=== PATIENT | male | born 1945 | race Caucasian/White ===

== ENCOUNTER → 2019-03-25 10:48 | Outpatient (CLI) | payer MEDICARE, OTHER, SELFPAY ==
--- NOTE | 2019-03-25 | DI.MRI.S_ITS ---
PROCEDURE: MR LUMBAR SPINE WO CON INDICATIONS: Low back pain TECHNIQUE: Noncontrast sagittal T1 spin echo and T2 fast echo, sagittal STIR, axial T1 and T2 fast spin echo through the lumbar spine. In cases with scoliosis, additional coronal T2 fast spin echo may be performed. COMPARISON: None. FINDINGS: Image quality: Excellent. Alignment and Curvature: There is normal bony alignment. Bone Marrow: Marrow is of normal overall signal. No acute vertebral body compression fractures. Spinal Cord: Conus medullaris terminates at the L1 level. Visualized cord demonstrates normal signal and size. Paraspinous Soft Tissues: No paravertebral masses. T12-L1: Normal appearance. L1-L2: The disc height is well-preserved. Loss of disc signal is seen at this level. No significant neural foraminal or central canal narrowing can be seen. There is an annular fissure seen posteriorly and on the left, as on series 5 image 11 and on series 4 image 11. L2-L3: The disc height is well-preserved. Loss of disc signal is seen at this level. Mild to moderate disc bulge is seen. Clnv-ts-ucgxzpnl facet hypertrophy is seen. There is rpkf-bh-uyhtgkhy bilateral neural foraminal narrowing seen. Moderate central canal narrowing is seen. L3-L4: The disc height is well-preserved. Loss of disc signal is seen at this level. Moderate generalized disc bulge is seen. Mild facet joint hypertrophy is seen. Cnvp-aq-pukwzijf bilateral neural foraminal narrowing is seen. Moderate central canal narrowing is seen. L4-L5: Mild to moderate loss of disc height and disc signal are seen. Reactive marrow endplate changes are seen, which are hyperintense on T1-weighted and T2-weighted imaging and most consistent with fatty metaplasia (Modic type II changes). Moderate disc bulge is seen, which is eccentric to the right. There is a right lateral recess disc extrusion seen, slight inferior migration of disc material. There is associated moderate central canal narrowing and associated mass effect upon the regional nerve roots, including upon the transiting right L5 nerve root. Moderate to prominent facet hypertrophy is seen at this level. There is moderate right-sided and moderate to severe left-sided neural foraminal narrowing seen. There is a degree of compression seen upon the exiting left L4 nerve root. L5-S1: The disc height is well-preserved. Loss of disc signal is seen at this level. Mild generalized disc bulge is seen. Mild facet joint hypertrophy is seen. No significant neural foraminal or central canal narrowing can be seen. IMPRESSION: Degenerative changes are seen, which are worst at the L4-L5 level, where there is a right-sided disc extrusion with associated central canal narrowing and mass effect. Moderate to severe left-sided neural foraminal narrowing is also seen at L4-L5, with associated exiting left L4 nerve root compression. L1-L2 annular fissure. Dictated by: yK Segura M.D. on 03/25/2019 at 14:10 Approved by: Ky Segura M.D. on 03/25/2019 at 14:15
== END ==
PROVIDERS: PCP Family Medicine; Visit Provider Physician Assistant Surgical
DX: M54.5 Low back pain (principal); M47.816 Spondylosis without myelopathy or radiculopathy, lumbar region; M47.817 Spondylosis without myelopathy or radiculopathy, lumbosacral region; M48.061 Spinal stenosis, lumbar region without neurogenic claudication; M48.07 Spinal stenosis, lumbosacral region
CPT/HCPCS: 72148

== ENCOUNTER 2019-08-02 12:38 | Day surgery (SDC) | payer MEDICARE, OTHER, SELFPAY ==
[2019-07-31 12:09] VITALS: BMI 31.5
[2019-08-02] VITALS (7 sets, daily range): BP systolic 155–168; BP diastolic 89–97; PULSE 76–86; RESP 14–20; TEMP 35.9–37; O2SAT 96–98; BMI 31.5
--- NOTE | 2019-08-02 | DI.RAD.S_ITS ---
PROCEDURE: XR LUMBAR SPINE 2-3V INDICATIONS: L4-5 MICRODISECTOMY TECHNIQUE: 2 views of the lumbar spine were acquired. COMPARISON: [facility] YASMEEN Sousa, XR LUMBAR SPINE 2 OR 3 VIEWS, 02/19/2019, 10:34. FINDINGS: 2 intraoperative images demonstrate radiopaque surgical probe localizing the L4-L5 level for microdiscectomy. IMPRESSION: Localization with surgical probe at the L4-L5 level. Dictated by: James MAGAÑA Interpreted: Lary Pinedo MD on 08/02/2019 at 16:05 Approved by: Lary Pinedo M.D. on 08/02/2019 at 16:34
[2019-08-02] MEDS: LACTATED RINGERS 1,000 ML 42 ML IV (13:15)
--- NOTE | 2019-08-02 14:42 | PM.PREOP ---
Pre-operative Note Interval Note History & Physical reviewed/Exam performed by Physician: Yes Changes to H&P: No
[2019-08-02] MEDS: CEFAZOLIN 2 GM/100 ML FROZ.PIGGY IV (15:19)
--- NOTE | 2019-08-02 15:50 | SUR.OPER ---
Prone on spine table, head in foam head support, padded chest and pelvic supports, gel pad at knees, lower legs supported by pillows; nipples, genitalia and toes free of pressure, arms secured on foam padded arm boards at <90 degrees abduction. Tape over blanket at thigh secured to table.
[2019-08-02] MEDS: BUPIVACAINE 0.25% W/ EPI 30 ML VIAL INJ (16:02)
[2019-08-02] MEDS: methylPREDNISolone acet DEPO 40 MG/ML VIAL INJ (16:03)
--- NOTE | 2019-08-02 16:20 | P.OP_ITS ---
Operative Date/Time/Diagnoses Date of procedure: 08/02/19 Time of procedure: 15:20 Pre-op diagnosis: 1. L4-5 disc herniation 2. Lumbar radiculopathy Post-op diagnosis: same Procedure & Clinicians Procedure: 1. L4-5 right microdiscectomy with laminotomy 2. Utilization of microsurgical technique and operating microscope Same procedure as scheduled: Yes Indications: Patient has been having chronic back pain and worsening lumbar radiculopathy. Patient failed multiple conservative management with worsening pain weakness and numbness in her lower extremity. Patient has been having difficulty performing activity of daily living. After discussing risks benefits of treatment options, patient elected proceed with surgery. Surgeon: To Coleman Director Of Integrated Marketing: Nicci Kim Click Yes if Unassisted: No Anesthesia Type: General Operative Notes Closure Type: primary Specimen(s): none sent Estimated Blood Loss (mL): 5 Blood products transfused: none Procedure in detail: Patient was seen in the preoperative area. Risks and benefits of the surgery was discussed with the patient. Informed consent was obtained from the patient and placed in the chart. Surgical site was marked. Patient was taken to the operative room. General anesthesia was administered. Prophylactic antibiotic was given to the patient less than 30 min before the incision was made. Patient was placed into a prone position on the Octavio table. Patient's back was then prepped and draped in the sterile fashion. Time- out was performed at this time. Using AP and lateral C-arm imaging the interval between L4-5 was identified and marked on patient's back. A 1 inch incision 1 in from midline was made on the right side. The fascia was incised in line with skin incision. Globus MARS retractors was placed inside the incision and docked onto the L4 lamina. Using microsurgical technique and operating microscope, a L4-5 laminotomy was performed using a Kerrison rongeur. Liagamentum flavum was resected at the site of the laminotomy. The disc space at L4-5 was identified. Microdiscectomy was performed by incising the annulus with #11 blade. Microcurettes and pituitary was used to removed herniated disc fragments of disc from the epidural space. After the microdiskectomy was completed, the area medial lateral superior and inferior to the area of the microdiskectomy was inspected and explored using a micro curette. No other impinging structure was identified. The wound was then irrigated with sterile normal saline. 40 mg Depo-Medrol was placed into the epidural space. The deep fascia was closed with 1-0 Vicryl. The subcutaneous tissue was closed with 2-0 Vicryl. The skin was closed with 4-0 Monocryl. Patient tolerated the procedure well. There were no complications. Patient was transferred recovery room in stable condition. Complications: none Post-operative Condition: stable Disposition: PACU Plan for aftercare: Discharge to home
[2019-08-02] MEDS: HYDROCODONE/ACET 5/325 TABLET 1 TAB PO (16:58)
== END 2019-08-02 17:46 | disposition home or self-care (01) ==
PROVIDERS: PCP Family Medicine; Visit Provider Orthopaedic Surgery Orthopaedic Surgery of the Spine
PROC: (CPT 63030; principal; 2019-08-02 14:45)
DX: M51.16 Intervertebral disc disorders with radiculopathy, lumbar region (principal); G47.30 Sleep apnea, unspecified; E66.9 Obesity, unspecified; E11.9 Type 2 diabetes mellitus without complications; M19.90 Unspecified osteoarthritis, unspecified site; Z79.84 Long term (current) use of oral hypoglycemic drugs; Z68.32 Body mass index [BMI] 32.0-32.9, adult
CPT/HCPCS: 63030; 72100; 76000; J0330; J0690; J1030; J1100; J2250; J2405; J2704; J3010

== ENCOUNTER → 2023-02-10 10:17 | Outpatient (CLI) | payer MEDICARE, OTHER, SELFPAY ==
--- NOTE | 2023-02-10 | DI.NM.S_ITS ---
PROCEDURE: NM TUAN PERF SPECT REST & STR Rest and exercise myocardial perfusion SPECT with gated imaging and ejection fraction RADIOPHARMACEUTICAL: 11 mCi Tc-99m sestamibi IV at rest and 25.6 mCi Tc-99m sestamibi IV at peak exercise. A one day-protocol was performed. INDICATIONS: Chest pain, unspecified TECHNIQUE: Radiopharmaceutical was injected at peak stress test, and also at rest. SPECT images were obtained. SPECT myocardial perfusion images were displayed in short axis, horizontal long axis, and vertical long axis views. Gated images were reviewed using Intio software. COMPARISON: None. CARDIAC STRESS: A standard Joe treadmill exercise tolerance test was performed by the patient under the supervision of an attending staff. The patient exercised for 8 minutes and 24 seconds; functional aerobic impairment (VIN) is -45%. Hemodynamic data: There is normal blood pressure and heart rate response to exercise stress. Patient achieved 106% of maximum predicted heart rate at peak exercise. Symptoms: Patient denied chest pain during exercise. EKG: No diagnostic EKG changes of ischemia; frequent PVCs at peak exercise. FINDINGS: Raw data: There is good myocardial labeling by radiotracer. No significant motion artifacts. Exaz-wh-ukksr ratio is 0.25 (normal is less than 0.38 for sestamibi tracer, and less than 0.50 for thallium tracer). Left ventricle function: Gated images demonstrate normal left ventricle wall thickening. No segmental wall motion abnormality. No transient ischemic dilation; TID is 0.87 (normal less than 1.3). The left ventricle resting end-diastolic volume is 91 mL. Left ventricle stress ejection fraction is 67%; normal values are above 45%. Myocardial perfusion: There is normal distribution of activity in the left and right ventricular myocardium based on stress prone images. IMPRESSION: Low risk, normal treadmill nuclear stress test 1) No perfusion evidence of ischemia or infarction. 2) Normal left ventricular size, wall motion, and systolic function (EF 67% post stress). 3) No ECG evidence of ischemia. 4) No angina during the study. 5) Excellent exercise capacity (10.1METs, VIN -45%). Target heart rate achieved. Appropriate BP response to exercise. 6) No prior nuclear stress test available for comparison. Dictated by: Manjinder Simpson MD on 02/10/2023 at 16:42 Approved by: Manjinder Simpson MD on 02/10/2023 at 16:45
== END ==
PROVIDERS: PCP Nurse Practitioner Family; Referring Provider Physician Assistant Medical; Visit Provider Physician Assistant Medical
DX: R07.9 Chest pain, unspecified (principal)
CPT/HCPCS: 78452; 93017; A9502